=== PATIENT | male | born 1960 | race African-American/Black ===

== ENCOUNTER 2020-03-01 13:17 | Emergency (ER) | payer MEDICAID ==
[~2020-03-01] VITALS: Ht 175.3 cm; Wt 76.0 kg
[2020-03-01 13:21] VITALS: BP 142/84
== END 2020-03-01 16:16 | disposition left against medical advice (07) ==
LOC: ER 13:17 → EDBD 13:17 → ER 16:16
DX: Z53.21 Procedure and treatment not carried out due to patient leaving prior to being seen by health care provider (principal)